=== PATIENT | female | born 1985 | race Two or more races ===

== ENCOUNTER 2018-12-18 08:45 | Inpatient (IN) | payer OTHER ==
[~2018-12-18] VITALS: Ht 154.9 cm; Wt 58.5 kg
== END 2018-12-24 08:18 | disposition home or self-care (01) | DRG 743 ==
LOC: O/R 12-22 05:40 → SURH 12-22 08:45 → OB/GYN 12-22 10:49 → SURH 12-22 13:15 → OB/GYN 12-24 08:18
PROVIDERS: ADMIT Obstetrics & Gynecology
PROC: 0WJG0ZZ Inspection of Peritoneal Cavity, Open Approach (ICD-10-PCS; 2018-12-22)
PROC: 0UB10ZZ Excision of Left Ovary, Open Approach (ICD-10-PCS; principal; 2018-12-22 13:15)
DX: N80.1 Endometriosis of ovary (principal); N83.12 Corpus luteum cyst of left ovary

== ENCOUNTER 2022-10-01 05:42 | Day surgery (SDC) | payer OTHER ==
[~2022-10-01] VITALS: Ht 154.9 cm; Wt 59.0 kg
== END 2022-10-01 15:35 | disposition home or self-care (01) ==
LOC: CIR.AMB 05:42
PROVIDERS: ATTEND Obstetrics & Gynecology
DX: N84.0 Polyp of corpus uteri (principal)

== ENCOUNTER 2023-08-16 09:15 | Inpatient (IN) | payer OTHER ==
[~2023-08-16] VITALS: Ht 154.9 cm; Wt 58.5 kg
[2023-08-19 16:44] LABS: HEMATOCRIT 28.4 % (36.0-45.00); HEMOGLOBIN 9.4 g/dL (12.0-15.00); MEAN CELL VOLUME 73.5 fL (80.00-100.00); MEAN CORPUSCULAR HEMOGLOBIN 24.2 pg (27.00-32.0); PLATELET COUNT 305 K/uL (150-450); RED BLOOD COUNT 3.86 M/uL (4.00-6.00)
[2023-08-19 16:45] LABS: RED CELL DISTRIBUTION WIDTH 17.6 % (11.5-14.5)
[2023-08-21] MEDS ORDERED: POLY119PG PO (06:43)
[2023-08-21] MEDS ORDERED: IBUPROFEN800 MG PO (06:43)
[2023-08-21] MEDS ORDERED: GABAPENTIN300 MG PO (06:43)
[2023-08-21] MEDS ORDERED: SIMETHICONE125 M1 PO (06:43)
== END 2023-08-21 09:20 | disposition home or self-care (01) | DRG 743 ==
LOC: O/R 08-19 07:44 → OB/GYN 08-19 09:15
PROVIDERS: ADMIT Obstetrics & Gynecology; ATTEND Obstetrics & Gynecology
PROC: 0UT70ZZ Resection of Bilateral Fallopian Tubes, Open Approach (ICD-10-PCS; 2023-08-19)
PROC: 0UT90ZZ Resection of Uterus, Open Approach (ICD-10-PCS; principal; 2023-08-19 10:45)
DX: D25.1 Intramural leiomyoma of uterus (principal); D25.2 Subserosal leiomyoma of uterus; D25.0 Submucous leiomyoma of uterus; N80.03 Adenomyosis of the uterus; Z20.822 Contact with and (suspected) exposure to COVID-19